=== PATIENT | male | born 1995 | race African-American/Black ===

== ENCOUNTER 2018-11-29 17:03 | Emergency (ER) | payer BC, OTHER ==
--- NOTE | 2018-11-29 17:21 | PDOC ---
Rapid Medical Evaluation Medical Evaluation: I have performed a brief in-person evaluation of this patient. The patient presents with a chief complaint of: c/o L eye pain, redness and tearing from today; states slept with his contacts on; took them off today; was referred from [facility] for evaluation Pertinent physical exam findings: +L eye injected, tearing I have ordered the following: Nothing The patient will proceed to the ED for further evaluation. 11/29/18 17:19 Discharge Disposition - Referrals Referrals: Britany Fritz MD [Primary Care Provider] - - Patient Instructions - Post Discharge Activity
[2018-11-29 17:24] VITALS: BP 151/79; PULSE 54; TEMP 97.9; BMI 29.8
[2018-11-29] MEDS ORDERED: FLUORESCEIN NA 1 EA STRIP ONE (17:38)
[2018-11-29] MEDS ORDERED: TETRACAINE 0.5% OPHTH SOLN 2 ML BOTTLE ONE (17:38)
--- NOTE | 2018-11-29 17:52 | PDOC ---
History of Present Illness - General Chief Complaint: Eye Problem Stated Complaint: PINK EYE Time Seen by Provider: 11/29/18 17:19 History Source: Patient - History of Present Illness Timing/Duration: other (this am) Past History - Past Medical History Allergies/Adverse Reactions: Allergies Allergy/AdvReac Type Severity Reaction Status Date / Time No Known Allergies Allergy Verified 11/29/18 17:24 Asthma: Yes COPD: No - Immunization History Immunization Up to Date: Yes - Suicide/Smoking/Psychosocial Hx Smoking History: Never smoked Have you smoked in the past 12 months: No Information on smoking cessation initiated: No Hx Alcohol Use: No Drug/Substance Use Hx: Yes (MARIJUANA) Review of Systems - Review of Systems HEENTM: Yes: Eye Pain, Tearing. No: Blurred Vision *Physical Exam - Vital Signs Last Vital Signs Temp Pulse Resp BP Pulse Ox 97.9 F 54 L 18 151/79 99 11/29/18 17:20 11/29/18 17:20 11/29/18 17:20 11/29/18 17:20 11/29/18 17:20 - Physical Exam General Appearance: Yes: Appropriately Dressed. No: Apparent Distress HEENT: positive: Normal Voice, Other (L conjunctival erythema, no discharge or tearing). negative: Scleral Icterus (R), Scleral Icterus (L) Neck: positive: Supple Respiratory/Chest: negative: Respiratory Distress Gastrointestinal/Abdominal: positive: Soft Integumentary: positive: Dry, Warm Neurologic: positive: Fully Oriented, Alert, Normal Mood/Affect Medical Decision Making - Medical Decision Making 11/29/18 17:47 23 yo M, no sig hx, wears contact lens and admits to wearing them overnight, now here w/ L conjunctivitis erythema/pain/tearing that pt awoke with this am. No visual changes, fb sensation, photophobia or discharge. Seen at [facility] today and told no corneal abrasion on evaluation and started pt on ofloxacin. has taken 2 doses since. [facility] facility arranged optho f/u but states optho called him and referred him to the ER without ever evaluating pt See exam Conjunctivitis in contact lens wearer R/o for corneal abrasion at [facility] and now on oflox since today Here because referred by otho facility who never evaluated pt I contact optho and spoke to Dr Rivera who states pt can f/u this Thursday in office *DC/Admit/Observation/Transfer Diagnosis at time of Disposition: Conjunctivitis Qualifiers: Conjunctivitis type: acute Acute conjunctivitis type: unspecified Laterality: left Qualified Code(s): H10.32 - Unspecified acute conjunctivitis, left eye - Discharge Dispostion Disposition: HOME Condition at time of disposition: Good - Referrals Referrals: Britany Fritz MD [Staff Physician] - - Patient Instructions Printed Discharge Instructions: Conjunctivitis Additional Instructions: Discard contact lens and do not wear new ones until symptoms resolve Please call Dr Rivera in am at [phone] to make an appointment to be seen on . Let staff know that you were seen in the ED and that ED staff spoke to Dr Rivera who wants to see you this week Office located at [address] [place] [address], [id number] - Post Discharge Activity Forms/Work/School Notes: Back to Work
== END 2018-11-29 18:18 | disposition home or self-care (01) ==
LOC: JERFT 17:03
DX: H10.32 Unspecified acute conjunctivitis, left eye (principal)
CPT/HCPCS: 99281-25

== ENCOUNTER 2021-12-17 08:20 | Emergency (ER) | payer OTHER ==
[2021-12-17 08:26] VITALS: TEMP 98.3; BMI 31.1
[2021-12-17] MEDS ORDERED: ALBUTEROL SO4 2.5/IPRATROPIUM 0.5 INH SOL 3 ML VIAL.NEB. NEB ONE ×4 (08:37→09:00)
[2021-12-17] MEDS ORDERED: methylPREDNISolone NA SUCC 125 MG/2 ML VIAL ONE (08:46)
[2021-12-17] MEDS ORDERED: methylPREDNISolone NA SUCC 125 MG/2 ML VIAL IVPUSH ONE (09:23)
[2021-12-17 11:24] VITALS: BP 138/82; PULSE 84; RESP 18
== END 2021-12-17 11:17 | disposition home or self-care (01) ==
LOC: JER 08:20
PROC: 3E0F7GC Introduction of Other Therapeutic Substance into Respiratory Tract, Via Natural or Artificial Opening (ICD-10-PCS; principal; 2021-12-17)
PROC: 3E0F7GC Introduction of Other Therapeutic Substance into Respiratory Tract, Via Natural or Artificial Opening (ICD-10-PCS; 2021-12-17)
PROC: 3E033GC Introduction of Other Therapeutic Substance into Peripheral Vein, Percutaneous Approach (ICD-10-PCS; 2021-12-17)
DX: J45.909 Unspecified asthma, uncomplicated (principal)
CPT/HCPCS: 71045-TC-FY; 93005; 93010; 99284-25